=== PATIENT | male | born 1995 | race Caucasian/White ===

== ENCOUNTER 2016-07-31 15:26 | Emergency (ER) | payer OTHER ==
[2016-07-31 15:44] VITALS: RESP 16; TEMP 97.9
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
[2016-07-31 17:11] VITALS: BP 105/85; PULSE 72; O2SAT 95
== END 2016-07-31 17:14 | disposition home or self-care (01) ==
LOC: EDUNIT#
DX: S62.362A Nondisplaced fracture of neck of third metacarpal bone, right hand, initial encounter for closed fracture (principal); S06.0X0A Concussion without loss of consciousness, initial encounter; S09.93XA Unspecified injury of face, initial encounter; S16.1XXA Strain of muscle, fascia and tendon at neck level, initial encounter; F17.200 Nicotine dependence, unspecified, uncomplicated; V03.10XA Pedestrian on foot injured in collision with car, pick-up truck or van in traffic accident, initial encounter; Y92.410 Unspecified street and highway as the place of occurrence of the external cause
CPT/HCPCS: L0172